=== PATIENT | male | born 2000 | race Two or more races ===

== ENCOUNTER → 2019-10-14 | Outpatient (CLI) | payer OTHER ==
--- NOTE | 2019-10-14 11:45 | REP ---
Three-phase bone scan of the lower legs: History: Pain in the left lower leg. Question stress fracture. Comparison radiographs October 06, 2019. Technique: 22.0 mCi technetium 99m MDP is injected and standard three-phase imaging was acquired. Scintigraphic findings: Anterior and posterior flow images are normal. Blood pool images demonstrate mild linear area of slight asymmetry in the left medial distal calf. Delayed scan images demonstrate slightly asymmetric uptake in the medial and posterior cortex of the tibia left greater than right. Some increased uptake is seen here on the right as well. The findings are compatible with bilateral stress periostitis mild in degree. No establish stress fracture. Impression: Findings compatible with mild bilateral tibial stress periostitis, left more so than right. No establish stress fracture seen. Electronically Signed by Ebenezer Rivers MD 10/14/2019 06:36 P
== END ==
LOC: M RAD 07:56
PROVIDERS: ATTEND Physician Assistant Surgical
DX: M89.8X6 Other specified disorders of bone, lower leg (principal)
CPT/HCPCS: 78315; A9503

== ENCOUNTER 2020-07-29 19:07 | Emergency (ER) | payer OTHER ==
[~2020-07-29] VITALS: Ht 167.6 cm; Wt 80.9 kg
[2020-07-29] MEDS ORDERED: IBUP-1114 PO (19:11)
[2020-07-29] MEDS ORDERED: AUGM875T28 PO (20:17)
[2020-07-29] MEDS ORDERED: CIPRODEX OTIC (20:17)
[2020-07-29 20:23] VITALS: BP 136/83
== END 2020-07-29 20:35 | disposition home or self-care (01) ==
LOC: M ED 19:07
DX: H66.93 Otitis media, unspecified, bilateral (principal); H60.93 Unspecified otitis externa, bilateral